=== PATIENT | male | born 1995 | race Caucasian/White ===

== ENCOUNTER 2022-04-07 06:15 | Emergency (ER) | payer SELFPAY ==
--- NOTE | 2022-04-07 06:20 | XRR_ITS ---
PROCEDURE INFORMATION: Exam: XR Right Ankle Exam date and time: 04/07/2022 6:36 AM Age: 27 years old Clinical indication: Injury or trauma; Fall; Blunt trauma; Right; Injury details: Fell today pain to entire ankle TECHNIQUE: Imaging protocol: Radiologic exam of the Right ankle. Views: Frontal, lateral, and oblique, 3 views. COMPARISON: No relevant prior studies available. FINDINGS: Bones/joints: Comminuted nondisplaced fractures involving the medial distal tibial metaphysis (hairline, oblique) and medial malleolus (comminuted, transverse) extending into the medial tibiotalar articulation. No joint incongruity. Small tibiotalar joint effusion. An os trigonum is present, a sometimes symptomatic normal variant. Soft tissues: Medial anterior predominant mild soft tissue swelling. XR/XR ankle RT min 3V* [id number] IMPRESSION: Acute distal tibial fractures.
--- NOTE | 2022-04-07 06:20 | XRR_ITS ---
PROCEDURE INFORMATION: Exam: XR Right Foot Exam date and time: 04/07/2022 6:36 AM Age: 27 years old Clinical indication: Injury or trauma; Fall; Blunt trauma; Right; Injury details: Fell today pain to entire ankle TECHNIQUE: Imaging protocol: Radiologic exam of the Right foot. Views: Frontal, lateral, and oblique, 3 views. COMPARISON: No relevant prior studies available. FINDINGS: Bones/joints: No acute bony abnormality identified. Possible small tibiotalar joint effusion. Fifth DIP joint fusion, normal variant. An os trigonum is present, a sometimes symptomatic normal variant. Soft tissues: Normal. XR/XR foot RT min 3V* [id number] IMPRESSION: 1. No acute bony injury identified. 2. Possible small tibiotalar joint effusion.
[2022-04-07 06:22] VITALS: BP 163/105; PULSE 100; RESP 18; TEMP 36.7; O2SAT 95; BMI 35.9
[2022-04-07 06:25] VITALS: PULSE 100
--- NOTE | 2022-04-07 06:26 | ED_ITS ---
HPI - Extremity Problem General: Chief complaint: Extremity Injury, Lower Stated complaint: Fell, Right foot injury Time Seen by Provider: 04/07/22 06:20 Source: patient Mode of arrival: ambulatory Limitations: no limitations History of Present Illness: 27-year-old male who presents to the emergency room with complaint of right foot injury. He evidently had been drinking and fell off a porch and injured his right foot is complaining of pain in the forefoot behind the second and first toes. Also complaining of pain in the ankle mild swelling he has been able to partially bear weight. He denies any other ingestion strike his head did not lose consciousness. MD Complaint: extremity pain and joint pain Onset (ago): hour(s) Pain Consistency: intermittent Location: left and lower extremity (Ankle foot) Relieving factors: nothing Exacerbating factors: nothing Associated symptoms: Deny chest pain, fever(s) or rash Review of Systems Const: Denies: fever(s), chills, body aches, change in appetite, fatigue or malaise ENMT: Denies: throat pain, ear or mastoid pain, nasal discharge or nasal lily estion Card: Denies: chest pain, edema, dyspnea on exertion or orthopnea Resp: Denies: dyspnea, productive cough or non-productive cough GI: Denies: abdominal pain, nausea or vomiting : Denies: difficulty urinating, dysuria, urinary frequency or urinary urgency Skin/Breast: Denies: rash or pruritus [facility] ED PFSH: Medical History No significant past medical history Surgical History No significant past surgical history Social History Smoking and tobacco status: current every day smoker Alcohol intake: current Physical Exam Const: COMMON NORMALS: no acute distress GENERAL APPEARANCE: cooperative and comfortable ORIENTATION/CONSCIOUSNESS: Yes awake, Yes oriented to person, Yes oriented to place and Yes oriented to time HENMT: COMMON NORMALS: normocephalic and atraumatic HEAD & SCALP: normocephalic and atraumatic Resp: COMMON NORMALS: normal respiratory effort, No retractions, No use of accessory muscles and clear to auscultation bilaterally AUSCULTATION: clear to auscultation bilaterally Cardio: COMMON NORMALS: regular rate, regular rhythm and No murmurs present (Cardio) RATE: regular rate RHYTHM: regular rhythm Extremity: OTHER: Moderate swelling of the right ankle no deformity no abrasions or lacerations. Patient able to dorsi and plantarflex sensation intact neurovascularly intact. Neuro: SENSORIUM/ORIENTATION: Yes oriented to person, Yes oriented to place and Yes oriented to time Skin: COMMON NORMALS: no rashes or lesions noted GENERAL SKIN EXAM: no rashes or lesions noted Course Vital Signs: Vital signs: Vital Signs Temperature 98.1 F 04/07/22 06:22 Pulse Rate 100 04/07/22 06:25 Respiratory Rate 18 04/07/22 06:22 Blood Pressure 163/105 04/07/22 06:22 Pulse Oximetry 95 04/07/22 06:22 Oxygen Delivery Me thod 04/07/22 06:22 MDM - Extremity (Nontraumatic) Medical Decision Making Fractured medial malleolus. Placed in a posterior splint nonweightbearing pain medications given refer to Ortho. Medical Records I reviewed the patient's medical records. Lab Data I reviewed the patient's lab results. Radiology Impressions Ankle X-Ray 04/07/22 06:20 IMPRESSION: Acute distal tibial fractures. Foot X-Ray 04/07/22 06:20 IMPRESSION: 1. No acute bony injury identified. 2. Possible small tibiotalar joint effusion. Discharge Plan Discharge Patient Disposition: Home Clinical Impression: Fracture of medial malleolus Prescriptions: New hydrocodone-acetaminophen 5-325 mg tablet 1 tab PO Q6H PRN (Reason: pain) Qty: 10 0RF Discharge Orders: Discharge ED (Routine); Ordered 04/07/22 Ordered By: Constantino Rueda Discharge Diet: Usual diet Discharge Activity: Limit activity as instructed Patient Instructions: Opioid Safety Activity Restrictions/Additional Instructions: manager test will make arrangements for follow-up with orthopedics Stand Alone Forms: Work/School Release Coding Level of Care Code ED Folding Machine Operator for Gwendolyn Fwd Exam Detailed
== END 2022-04-07 07:00 | disposition home or self-care (01) ==
PROVIDERS: Emergency Provider Family Medicine
DX: S82.51XA Displaced fracture of medial malleolus of right tibia, initial encounter for closed fracture (principal); F17.210 Nicotine dependence, cigarettes, uncomplicated; W17.89XA Other fall from one level to another, initial encounter
CPT/HCPCS: 29515; 73610; 73630; 99283; E0114

== ENCOUNTER → 2022-04-23 13:23 | Outpatient (BNVA) | payer SELFPAY | PROVIDERS: Visit Provider Podiatrist Foot & Ankle Surgery | DX: M25.571 Pain in right ankle and joints of right foot (principal) | CPT/HCPCS: 73610 ==

== ENCOUNTER 2022-07-13 11:30 | Emergency (ER) | payer SELFPAY ==
[2022-07-13 11:32] VITALS: BP 139/95; PULSE 92; RESP 21; TEMP 36.3; O2SAT 99; BMI 34.7
--- NOTE | 2022-07-13 12:01 | CT_ITS ---
WS: [id number] CT ABDOMEN PELVIS TECHNIQUE: Noncontrast CT of the abdomen and pelvis with coronal and sagittal reformatted images. CLINICAL INFORMATION: left flank pain COMPARISON: None. DLP: 1204.[address] scans at [facility] use at least one of these dose optimization techniques: automated e xposure control; mA and/or kV adjustment per patient size (includes targeted exams where dose is matc hed to clinical indication); or iterative reconstruction. FINDINGS: Obstructing distal LEFT ureteral calculus measuring 10 x 16 mm. This is just proximal to the UVJ. Mar ked LEFT hydronephrosis with ureterectasis. Inflammatory stranding and edema about the LEFT kidney an d ureter. No obstructing RIGHT renal or ureteral calculi. Lung bases are well aerated. Noncontrast liver and spleen are normal. Fatty atrophy of the pancreas. Normal GE junction. Gallbladder is contracted. Normal caliber abdominal aorta. Small bladder cystocele. Normal sigmoid colon. No evidence of high-grade small or large bowel obstruc tion. Tiny fat-containing umbilical hernia. CT/CT abdomen pelvis wo con [id number] IMPRESSION: 1. Obstructing distal LEFT ureteral calculus measuring 10 x 16 mm AP by cranio caudal. Slight fragmentation along the superior aspect of the calculus. 2. Advanced LEFT hydronephrosis with LEFT ureterectasis. 3. Inflammatory stranding and edema about the LEFT kidney and ureter. 4. Normal RIGHT kidney and ureter. 5. No other acute findings. Attempted notification Chaparro Hyde DO at 07/13/2022 1:08 PM.
--- NOTE | 2022-07-13 12:02 | W.ED.ABDPA2 ---
HPI - Abdominal Pain General: Chief Complaint: Abdominal Pain Stated Complaint: abdominal pain Time Seen by Provider: 07/13/22 11:34 Source: patient Mode of arrival: EMS Limitations: no limitations History of Present Illness: This patient transported by EMS to the emergency department because of left abdominal and flank pain. He states he awoke this morning from sleep and noted that he had pretty significant left flank and left abdominal pain. He states it seemed to radiate into his left testicle as well. He states that he felt fine when he went to bed last night. 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 He denies any falls. Denies any numbness or weakness or loss of bowel or bladder control. He states the pain is unlike pain he is experienced before. No history of kidney stones, frequent urinary tract infections, STD exposure. He denies vomiting or diarrhea. No abdominal surgeries. MD elicited complaint: abdominal pain and flank pain Pertinent past history: none Location: L flank Quality: aching and dull Associated Symptoms: Reports no associated symptoms; Denies chills, diarrhea, dysuria, fever(s), hematuria, hematemesis and vomiting Review of Systems Const: Denies: fever(s) or chills Eyes: Denies: change in vision ENMT: Denies: throat pain, odynophagia, nasal discharge, nasal congestion or nasal obstruction Card: Denies: chest pain or palpitations Resp: Denies: dyspnea, productive cough or non-productive cough GI: Denies: vomiting, hematemesis or diarrhea : Reports: flank pain; Denies: difficulty urinating, dysuria, urinary frequency, hematuria, genital pain, genital lesions or penile discharge Musc: Denies: neck pain, extremity pain or extremity swelling Skin/Breast: Denies: rash or pruritus Neuro: Denies: headache(s), numbness in extremities or weakness in extremities Abiodun/Lymph: Denies: easy bruising or easy bleeding PFSH ED PFSH: Medical History No significant past medical history Surgical History No significant past surgical history Social History Smoking and tobacco status: current every day smoker Alcohol intake: current Physical Exam Narrative: EXAM NARRATIVE: Patient appears comfortable. He is cooperative. He appears to be in no acute distress. Const: COMMON NORMALS: no acute distress and patient oriented x3 GENERAL APPEARANCE: cooperative and comfortable NUTRITIONAL APPEARANCE: overweight ORIENTATION/CONSCIOUSNESS: Yes awake HENMT: COMMON NORMALS: normocephalic, Normal nasal mucous membranes and turbinates present, moist oral mucous membranes and oropharynx normal HEAD & SCALP: normocephalic NOSE: Normal nasal mucous membranes and turbinates present Eye: COMMON NORMALS: Equal, round and reactive pupils present, EOMs intact bilaterally and conjunctivae normal CONJUNCTIVA: Yes conjunctivae normal PUPIL: Yes Equal, round and reactive pupils present Neck/C-Spine: COMMON NORMALS: full ROM Chest: COMMONS NORMALS: normal inspection of the chest and normal palpation of entire chest wall Resp: COMMON NORMALS: normal respiratory effort, No retractions, No use of accessory muscles and clear to auscultation bilaterally AUSCULTATION: clear to auscultation bilaterally Cardio: COMMON NORMALS: regular rate, regular rhythm, No murmurs present (Cardio) and Peripheral pulses 2+ throughout RATE: regular rate RHYTHM: regular rhythm PERIPHERAL PULSES: Peripheral pulses 2+ throughout GI: COMMON NORMALS: Normal to inspection, nondistended, normoactive bowel sounds present OTHER: Abdomen is generally soft to palpation. He does have some subjective tenderness in the left lateral and lower abdomen. No skin rashes, ecchymosis noted. Subjective discomfort to palpation extends around to the left flank. No exacerbation of symptoms with twisting and turning. No rebound, no guarding. : COMMON NORMALS: Yes no CVA tenderness, Yes normal external exam, Yes Testes normal, Yes scrotum normal, Yes no scrotal swelling and Yes No hernias present BLADDER/KIDNEY EXAM: Yes no CVA tenderness PENIS: normal penis TESTES: Yes testicular lie normal and Yes epididymides normal Back/Pelvis: COMMON NORMALS: no CVA tenderness, thoracic and lumbar spine normal to inspection, no thoracic nor lumbar tenderness, thoraco-lumbar ROM normal and straight leg raise negative bilaterally Extremity: COMMON NORMALS: normal to inspection, full ROM and no pedal edema Neuro: COMMON NORMALS: patient oriented x3, moves all extremities, no focal motor deficits and no sensory deficits noted Psych: COMMON NORMALS: mental status grossly normal Skin: COMMON NORMALS: no rashes or lesions noted, turgor normal, no jaundice and no petechiae GENERAL SKIN EXAM: no rashes or lesions noted and turgor normal Course Reevaluation(s): Reevaluation #1: Patient is comfortable at this time. I discussed current findings and plan of care. He voiced understanding. Stable at this time. Time: 14:29 Consultations: Consultation #1: Discussed current findings with Dr. Haji consulting urologist who will see him next day or so to evaluate and and treat as indicated. Time: 14:29 Vital Signs: Vital signs: Vital Signs Temperature 97.3 F L 07/13/22 11:32 Pulse Rate 81 07/13/22 14:01 Respiratory Rate 16 07/13/22 14:01 Blood Pressure 162/100 07/13/22 14:01 Pulse Oximetry 100 07/13/22 14:01 Oxygen Delivery Me thod 07/13/22 14:01 MDM - Abdominal Pain Medical Decision Making Patient who presented to our emergency department with left flank pain and subsequent work-up revealed left distal UVJ stone with associated hydronephrosis but no evidence of infection, diminished renal function or other concerning findings. I discussed with the consulting urologist who will manage the case as an outpatient. Reviewed the findings with the patient and in detail included return precautions such as fever etc. No evidence of associated infection or abnormal renal function and therefore stable at this time for outpatient management. Pain is well controlled. Medical Records I reviewed the patient's medical records. Lab Data I reviewed the patient's lab results. : 07/13/22 13:50 07/13/22 13:50 Labs/Radiology: Radiology Impressions Abdomen/Pelvis CT 07/13/22 12:01 IMPRESSION: 1. Obstructing distal LEFT ureteral calculus measuring 10 x 16 mm AP by craniocaudal. Slight fragmentation along the superior aspect of the calculus. 2. Advanced LEFT hydronephrosis with LEFT ureterectasis. 3. Inflammatory stranding and edema about the LEFT kidney and ureter. 4. Normal RIGHT kidney and ureter. 5. No other acute findings. Attempted notification Chaparro Hyde DO at 07/13/2022 1:08 PM. Laboratory Results WBC 10.5 10^3/uL (4.0-10.0) H 07/13/22 13:50 RBC 4.65 10^6/uL (4.1-5.3) 07/13/22 13:50 Hgb 14.2 g/dL (11.7-16.6) 07/13/22 13:50 Hct 42.6 % (42.0-52.0) 07/13/22 13:50 MCV 91.6 fl (80-94) 07/13/22 13:50 MCH 30.5 pg (28.0-34.0) 07/13/22 13:50 MCHC 33.3 g/dL (30.0-36.0) 07/13/22 13:50 RDW 12.5 % (12.1-15.1) 07/13/22 13:50 Plt Count 190 10^3/cmm (130-400) 07/13/22 13:50 MPV 10.3 fL (7.4-10.4) 07/13/22 13:50 Neut % (Auto) 81.5 % 07/13/22 13:50 Lymph % (Auto) 12.8 % 07/13/22 13:50 [place] % (Auto) 4.4 % 07/13/22 13:50 Eos % (Auto) 0.1 % 07/13/22 13:50 Baso % (Auto) 0.7 % 07/13/22 13:50 Neut # (Auto) 8.60 10^3/uL (1.8-7.7) H 07/13/22 13:50 Lymph # (Auto) 1.4 10^3/uL (0.8-4.8) 07/13/22 13:50 [place] # (Auto) 0.5 10^3/uL (0.2-0.9) 07/13/22 13:50 Eos # (Auto) 0.0 10^3/uL (0.0-0.8) 07/13/22 13:50 Baso # (Auto) 0.1 10^3/uL (0.0-0.1) 07/13/22 13:50 Nucleated RBC % (auto) 0 % 07/13/22 13:50 Nucleated RBCs # 0.0 /100WBC 07/13/22 13:50 Sodium 140 mmol/L (136-145) 07/13/22 13:50 Potassium 4.1 mmol/L (3.5-5.1) 07/13/22 13:50 Chloride 107 mmol/L (98-107) 07/13/22 13:50 Carbon Dioxide 24 mmol/L (22-29) 07/13/22 13:50 Anion Gap 13.1 (5-19) 07/13/22 13:50 BUN 7 mg/dL (6-20) 07/13/22 13:50 Creatinine 0.6 mg/dL (0.7-1.2) L 07/13/22 13:50 GFR Calculation 164.2 mL/min (90-130) H 07/13/22 13:50 Glucose 100 mg/dL (65-115) 07/13/22 13:50 Calculated Osmolality 288 mOsm/kg (285-295) 07/13/22 13:50 Calcium 8.9 mg/dL (8.5-10.5) 07/13/22 13:50 Total Bilirubin 0.2 mg/dL (0.15-1.2) 07/13/22 13:50 AST 10 U/L (0-40) 07/13/22 13:50 ALT 13 U/L (0-41) 07/13/22 13:50 Alkaline Phosphatase 93 U/L (40-130) 07/13/22 13:50 Total Protein 6.6 g/dL (6.6-8.7) 07/13/22 13:50 Albumin 4.0 g/dL (3.5-5.2) 07/13/22 13:50 Globulin 2.6 g/dL (1.3-4.6) 07/13/22 13:50 Urine Color Yellow (Yellow) 07/13/22 Unknown Urine Appearance Clear (CLEAR) 07/13/22 Unknown Urine pH 6 (5-7) 07/13/22 Unknown Ur Specific [place] 1.015 (1.005-1.030) 07/13/22 Unknown Urine Protein Trace (Negative) 07/13/22 Unknown Urine Glucose (UA) Norm (Normal) 07/13/22 Unknown Urine Ketones Negative (Negative) 07/13/22 Unknown Urine Blood 3+ (Negative) H 07/13/22 Unknown Urine Nitrate Negative (Negative) 07/13/22 Unknown Urine Bilirubin Neg (Negative) 07/13/22 Unknown Urine Urobilinogen Norm mg/dL (Negative) 07/13/22 Unknown Ur Leukocyte Esterase Negative (Negative) 07/13/22 Unknown Urine RBC 0-4 /hpf (0-2) H 07/13/22 Unknown Urine WBC None /hpf (0-5) 07/13/22 Unknown Ur Squamous Epith Cells None /hpf (0-5) 07/13/22 Unknown Amorphous Sediment Not Reportable 07/13/22 Unknown Urine Bacteria Trace /hpf (NONE) 07/13/22 Unknown Discharge Plan Discharge Patient Disposition: Home Clinical Impression: Calculus of distal left ureter Condition: Stable Prescriptions: New ketorolac 10 mg tablet 10 mg PO TID 4 Days Qty: 12 0RF No Action citalopram [Celexa] 10 mg tablet 10 mg PO DAILY Qty: 30 2RF Discharge Orders: Discharge ED (Routine); Ordered 07/13/22 Ordered By: Chaparro Hyde Referrals: Catrachito Haji MD [Physician] - 1-3 days (as discussed from ED) Discharge Diet: Usual diet Discharge Activity: Increase activity as tolerated Patient Instructions: Opioid Safety, Pain Management Activity Restrictions/Additional Instructions: Dr. Haji is office staff will be contacting you regarding follow-up. In the meantime if you develop fever, increasing pain, inability to tolerate your medicine or other concerns at any time return to this emergency department immediately. Make sure you drink at least 2 quarts of water a day. We have provided a prescription for pain medication you should take as needed and as prescribed. Coding Level of Care Code ED Extract Operator for Chg Fwd Exam Comprehensive
[2022-07-13 13:59] LABS: Basophils # 0.1 10^3/uL (0.0-0.1); Basophils % 0.7 %; Eosinophils % 0.1 %; Hematocrit 42.6 % (42.0-52.0); Hemoglobin 14.2 g/dL (11.7-16.6); Lymphocytes # 1.4 10^3/uL (0.8-4.8); Lymphocytes % 12.8 %; Mean Corpuscular HGB Conc 33.3 g/dL (30.0-36.0); Mean Corpuscular Hemoglobin 30.5 pg (28.0-34.0); Mean Corpuscular Volume 91.6 fl (80-94); Mean Platelet Volume 10.3 fL (7.4-10.4); Monocytes # 0.5 10^3/uL (0.2-0.9); Monocytes % 4.4 %; Neutrophils % 81.5 %; Nucleated Red Blood Cells % 0 %; Platelet Count 190 10^3/cmm (130-400); Red Blood Count 4.65 10^6/uL (4.1-5.3); Red Cell Distribution Width 12.5 % (12.1-15.1); White Blood Count 10.5 10^3/uL (4.0-10.0)
[2022-07-13 14:01] VITALS: BP 162/100; PULSE 81; RESP 16; O2SAT 100
[2022-07-13 14:09] LABS: Add Urine Culture? No; Add Urine Microscopic? YES; Bacteria Urine TRACE /hpf; Bilirubin Urine Neg (Negative); Blood Urine 3+ (Negative); Glucose Urine UA Norm (Normal); Ketones Urine Negative (Negative); Leukocyte Esterase Urine Negative (Negative); Nitrate Urine Negative (Negative); Protein Urine Trace (Negative); RBC Urine 0-4 /hpf (0-2); Specific Gravity, Urine 1.015 (1.005-1.030); Urine Appearance Clear (CLEAR); Urine Color Yellow (Yellow); Urobilinogen Urine Norm (Negative); pH Urine 6 (5-7)
[2022-07-13 14:18] LABS: Alanine Aminotransferase 13 U/L (0-41); Alkaline Phosphatase 93 U/L (40-130); Anion Gap 13.1 (5-19); Aspartate Amino Transferase 10 U/L (0-40); Blood Urea Nitrogen 7 mg/dL (6-20); Calcium 8.9 mg/dL (8.5-10.5); Carbon Dioxide 24 mmol/L (22-29); Chloride 107 mmol/L (98-107); Globulin 2.6 g/dL (1.3-4.6); Glomerular Filtration Rate 164.2 mL/min (90-130); Glucose 100 mg/dL (65-115); Osmolality Calculated 288 mOsm/kg (285-295); Potassium 4.1 mmol/L (3.5-5.1); Sodium 140 mmol/L (136-145); Total Bilirubin 0.2 mg/dL (0.15-1.2); Total Protein 6.6 g/dL (6.6-8.7)
[2022-07-13 14:36] VITALS: BP 144/84; PULSE 56; RESP 18; O2SAT 97
[2022-07-13 14:37] VITALS: BP 144/84; PULSE 56; RESP 18; O2SAT 97
== END 2022-07-13 14:41 | disposition home or self-care (01) ==
PROVIDERS: Emergency Provider Emergency Medicine
DX: N20.1 Calculus of ureter (principal); F17.210 Nicotine dependence, cigarettes, uncomplicated
CPT/HCPCS: 74176; 80053; 81001; 85025; 99284

== ENCOUNTER 2022-07-24 07:19 | Outpatient (CLI) | payer SELFPAY ==
--- NOTE | 2022-07-24 07:00 | XRR_ITS ---
PROCEDURE INFORMATION: Exam: XR Abdomen Exam date and time: 07/24/2022 7:37 AM Age: 27 years old Clinical indication: Condition or disease; Kidney or ureter condition; Calculus (stone) in kidney; Additional info: Stones, kub 07/24/22 @ 7:00 am appt to follow TECHNIQUE: Imaging protocol: Radiologic exam of the abdomen. Views: Frontal supine view of the abdomen. 1 View. COMPARISON: CT abdomen pelvis wo con [id number] 07/13/2022 12:27 PM FINDINGS: Gastrointestinal tract: Normal. No bowel dilation. Organs: Persistent adjacent obstructing stones in the left distal ureter, the largest measuring 1.6 cm. Bones/joints: Unremarkable. XR/XR KUB [id number] IMPRESSION: Persistent obstructing stones in the left distal ureter.
== END 2022-07-24 07:20 | disposition home or self-care (01) ==
PROVIDERS: Visit Provider Urology
DX: N20.0 Calculus of kidney (principal); N20.1 Calculus of ureter
CPT/HCPCS: 74018; 81003

== ENCOUNTER → 2022-07-29 14:43 | Outpatient (BNVA) | payer SELFPAY | PROVIDERS: PCP Nurse Practitioner Family; Visit Provider Urology | DX: N20.0 Calculus of kidney (principal); N20.1 Calculus of ureter | CPT/HCPCS: 81003 ==

== ENCOUNTER 2022-08-03 07:58 | Day surgery (SDC) | payer SELFPAY ==
[2022-08-03] VITALS (9 sets, daily range): BP systolic 121–167; BP diastolic 77–105; PULSE 58–85; RESP 16–20; TEMP 36.1–36.3; O2SAT 92–99
--- NOTE | 2022-08-03 | SCC_ITS ---
Procedure done: 1. Cystoscopy, LEFT retrograde ureteropyelogram 2. Left ureteroscopy, laser lithotripsy, stent 51 seconds of fluoroscopic guidance, for a cumulative dose of 21.8 mGy, was provided to Dr. Haji by the radiology department. C-arm images of the abdomen were saved for the patient's permanent record. [facility]
--- NOTE | 2022-08-03 08:00 | SC_ITS ---
WS: [id number] INTRAOPERATIVE TECHNIQUE: 3 Spot fluoroscopic images for intraoperative purposes. FLUOROSCOPY TIME: 43.1 seconds CLINICAL INFORMATION: 2 large left distal ureteral stones, preop ureteroscopy FINDINGS: Contrast injection LEFT ureter with multiple filling defects consistent with calculi. Deployment doub le-J ureteral stent. SC/C-arm FL for Urology IMPRESSION: Images obtained for intraoperative purposes.
--- NOTE | 2022-08-03 08:28 | P.ANESASSM_ITS ---
Pre-Anesthetic Assessment Height/Weight: Height 1.88 m Weight 122.47 kg Temp Pulse Resp BP Pulse Ox O2 Del Method 97.3 F L 83 16 167/105 97 08/03/22 08:00 08/03/22 08:00 08/03/22 08:00 08/03/22 08:00 08/03/22 08:00 08/03/22 08:12 Preop Diagnosis: 2 large left distal ureteral stones with chronic obstruction Operation Date: 08/03/22 09:35 Proposed Procedures p CYSTOSCOPY LEFT RETROGRADE URETEROSCOPY LASER STENT 94238 [id number] N20.1(Not Applicable) - Catrachito Haji MD s Retrograde Pyelogram(Left) - Catrachito Haji MD s Ureteroscopy(Left) - Catrachito Haji MD s Laser Lithotripsy(Left) - Catrachito Haji MD s Ureteral Stent Placement(Left) - Catrachito Haji MD Familial anesthetic complications: none Was Beta Jakob taken within 24 hours: N/A Was Clonidine taken within 24 hours: N/A Last intake: Intake Last Liquid Date 08/02/22 Last Liquid Time 20:00 Last Solid Date 08/02/22 Last Solid Time 20:00 Social Tobacco and No alcohol Exam alert, oriented x 3 and regular rate & rhythm Airway Submandibular: within normal limits Cervical ROM: within normal limits Dentition: full Pulmonary Chronic Obstructive Pulmonary Disease Metabolic Morbid Obesity Anesthetic Plan ASA status: 2 Anesthesia: General Medications/Allergies Home Medications Medication Instructions Recorded Confirmed Last Taken Type citalopram 10 mg tablet (Celexa) 10 mg PO DAILY #30 tabs 04/17/22 07/31/22 07/28/22 Rx Allergies Allergy/AdvReac Type Severity Reaction Status Date / Time No Known Allergies Allergy Verified 08/03/22 08:08 [facility] Anesthesia Medical History (Updated 07/29/22 @ 15:43 by Catrachito Haji MD) Left ureteral calculus No significant past medical history Surgical History No significant past surgical history Family History Mother Diabetes Thyroid disease Father Diabetes Social History Smoking and tobacco status: current every day smoker e-cigarettes Alcohol intake: current Alcohol intake frequency: few times a month Marital status: Single Current occupational status: employed History of recent travel: No Data Anesthesia Cardiac Studies: No Data to Display
[2022-08-03] MEDS: sodium chloride 0.9% 1,000 ML 30 ML IV (08:31)
--- NOTE | 2022-08-03 08:31 | W.PM.OPSUD ---
Surgery/Procedure H&P Update DATE OF PROCEDURE: August 03, 2022 DATE H&P PERFORMED: 07/29/22 H&P UPDATE INFORMATION: I have reviewed H&P completed within last 30 days, I have examined patient prior to procedure, No changes to prior documentation and H&P is in [facility] EMR on date indicated CHANGES TO PREVIOUS DOCUMENTATION: I reviewed again with him that there is a chance that we have to simply place a stent for passive dilation and drainage if there is a severe amount of inflammatory change that prevented the scope from safely being advanced to the stone. I also reviewed with him again that there is a possibility based on that same inflammatory potential that no access proximal to the stone could be gained in a retrograde fashion which would necessitate consideration of antegrade access/stenting via interventional radiology which would require consultation to interventional radiology department at another institution He expressed good understanding. I do not think those are likely but they are certainly a possibility given the size and persistence of the stones in this position PLANNED PROCEDURE: Operation Date: 08/03/22 09:35 Proposed Procedures p CYSTOSCOPY LEFT RETROGRADE URETEROSCOPY LASER STENT [id number] N20.1(Not Applicable) - Catrachito Haji MD s Retrograde Pyelogram(Left) - Catrachito Haji MD s Ureteroscopy(Left) - Catrachito Haji MD s Laser Lithotripsy(Left) - Catrachito Haji MD s Ureteral Stent Placement(Left) - Catrachito Haji MD
[2022-08-03] MEDS: levofloxacin-dextrose 5 % 500 MG/100 ML PREMIX 100 MG IV (08:40)
--- NOTE | 2022-08-03 10:06 | P.OP_ITS ---
Operative Report Date of procedure: August 03, 2022 Pre-op diagnosis: 2 large left distal ureteral stones with chronic obstruction Post-op diagnosis: Several large left distal ureteral stones with chronic obstruction Procedure done: 1. Cystoscopy, LEFT retrograde ureteropyelogram 2. Left ureteroscopy, laser lithotripsy, stent Implants: Left ureteral stent Specimens removed/disposition: Stone fragments Pathology: Stone fragments Surgeon: Raissa Estimated blood loss: Minimal Urine output: Not measured Complications: None Findings: Anesthesia: General Condition: Stable Disposition: PACU Intraoperative findings: * Stones in the expected position. * Completely fragmented with 365 ?m thulium superpulse laser fiber * 6 [place]an by 30 stent left indwelling no string Brief History: Ferny is a 27-year-old white male recently evaluated for 2 large stones in the left distal ureter with chronic obstructive changes and inflammatory changes around the stone. He had neglected to follow-up as he had been previously recommended the stones were originally diagnosed. Ultimately though due to intermittent symptoms he elected to proceed with intervention and endoscopy was selected initially. We discussed the potential because of chronic inflammatory changes that retrograde access may be quite difficult and necessitated a staged procedure either with indwelling stent initially as the only option of bypassing the stone or even potentially antegrade stent placement if severely inflamed and not accessible. He expressed understanding based on the rationale of his circumstances as to why those things might occur and was willing to proceed as recommended Procedure: After routine preoperative evaluation examination and obtaining of informed consent he was taken to the operating suite on 08/03/2022 where general anesthesia was administered without difficulty after appropriate timeout was performed, SCDs confirmed to be functioning, preoperative antibiotics administered, beta-artur protocol confirmed. Prepped and draped in usual sterile fashion in dorsolithotomy position and careful attention to pressure points. 21 [place]an cystoscope with 30 degree lens was introduced into the urethra meatus and advanced into the bladder difficulty. An 8 [place]an cone-tip catheter was intubated into the left ureteral orifice for left retrograde ureteropyelogram which demonstrated: Thankfully there was good flow of contrast proximal to the stones and the stones were free within the ureter. The ureter proximal to the stones was markedly dilated. There were actually probably 3 or 4 stones if not more in the distal ureter with the largest being the more distal. A flexible tip guidewire was then advanced up the left ureter bypassing the stones. The ureter distal to the most distal stone was then dilated with a 15 [place]an 4 cm balloon A second guidewire was passed. The first was secured to the drapes as a safety wire. A 7 [place]an offset semirigid ureteroscope was advanced over the working wire up to the stones which were encountered in the expected position. A 365 ?m thulium superpulse laser fiber was utilized to fragment the stones completely. Fragments were removed with basket or flushed out of the ureter. Final inspection showed that the ureter had no more fragments of consequence in it but it was quite inflamed at the site of stones location. For that reason a stent was left indwelling at the completion of the procedure. Cystoscope backloaded over the safety wire and a 6 [place]an by 30 cm double- pigtail stent without string was passed over the guidewire through the cystoscope into appropriate position as confirmed via fluoroscopy and cystoscopy. Bladder was cleared of fragments that had been migrated or dropped into the bladder with an Ellik evacuator. It was a very large burden of stone for ureteral location Stent was confirmed to be functioning and the procedure was completed. He tolerated procedure well without complications and was awakened in the operating room and returned to the recovery room in stable condition. PLANS: 1. Anticipate discharge from outpatient surgery 2. Follow-up in 2 weeks with KUB and likely cystoscopy stent removal
[2022-08-03] MEDS: HYDROcodone-acetaminophen 5-325 mg Tablet 1 TAB PO (10:50)
--- NOTE | 2022-08-03 15:18 | ANE.PACU2 ---
Inpatient post-anesthesia follow up: Airway intact: Yes Vital signs: Temperature 97.1 F Pulse Rate 58 Respiratory Rate 16 Blood Pressure 145/85 Pulse Oximetry 99 Oxygen Delivery Me thod Room Air Oxygen Flow Rate Fraction of Inspir ed Oxygen Hydration adequate: Yes Nausea and vomiting: No Pain level: 2 Mental status: Baseline
[2022-08-08 11:26] LABS: Stone Source LEFT URETER
== END 2022-08-03 11:10 | disposition home or self-care (01) ==
PROVIDERS: PCP Nurse Practitioner Family; Visit Provider Urology
PROC: 0TJB8ZZ Inspection of Bladder, Via Natural or Artificial Opening Endoscopic (ICD-10-PCS; CPT 52000; principal; 2022-08-03 09:15)
PROC: (CPT 74420; 2022-08-03 09:15)
PROC: 0TJ98ZZ Inspection of Ureter, Via Natural or Artificial Opening Endoscopic (ICD-10-PCS; CPT 52351; 2022-08-03 09:15)
PROC: (CPT 52356; 2022-08-03 09:15)
PROC: (CPT 50605; 2022-08-03 09:15)
DX: N20.1 Calculus of ureter (principal); J44.9 Chronic obstructive pulmonary disease, unspecified; E66.01 Morbid (severe) obesity due to excess calories; Z68.34 Body mass index [BMI] 34.0-34.9, adult; F17.290 Nicotine dependence, other tobacco product, uncomplicated
CPT/HCPCS: 52356; 76000; 82365; 88300; C2625; J1100; J1956; J2405; J2704; J2710; J3010; J3490; J7030

== ENCOUNTER 2022-08-19 12:09 | Outpatient (CLI) | payer SELFPAY ==
--- NOTE | 2022-08-19 12:15 | XR_ITS ---
WS: [id number] EXAMINATION: XR KUB [id number] REASON FOR EXAM: stone COMPARISON: 07/24/2022 ORDER DATE: 08/19/2022 12:21 PM FINDINGS: There is a nonspecific colonic gas pattern with scattered fecal content and gas. There is no sign of significant small bowel dilation. There is a double-J ureteral stent in satisfactory position on the left. Possible tiny calcification superimposes the lower pole left kidney. XR/XR KUB [id number] IMPRESSION: Ureteral stent on the left with possible tiny lower pole calcification Large distal left ureteral calculi no longer present.
== END 2022-08-19 12:10 | disposition home or self-care (01) ==
LOC: RAD 12:09
PROVIDERS: PCP Nurse Practitioner Family; Visit Provider Urology
DX: N20.1 Calculus of ureter (principal); Z96.0 Presence of urogenital implants
CPT/HCPCS: 74018

== ENCOUNTER 2024-03-29 14:24 | Emergency (ER) | payer SELFPAY ==
[2024-03-29 14:34] VITALS: BP 121/85; PULSE 139; RESP 18; TEMP 37.1; O2SAT 98; BMI 35.2
[2024-03-29 15:11] LABS: Basophils # 0.1 10^3/uL (0.0-0.1); Basophils % 0.8 %; Eosinophils # 0.1 10^3/uL (0.0-0.8); Eosinophils % 0.6 %; Hematocrit 45.9 % (37-53); Lymphocytes # 2.4 10^3/uL (0.8-4.8); Lymphocytes % 24.9 %; Mean Corpuscular HGB Conc 33.8 g/dL (30-55); Mean Corpuscular Hemoglobin 29.4 pg (27-33); Mean Corpuscular Volume 86.9 fl (82-101); Mean Platelet Volume 10.6 fL (7.4-10.4); Monocytes # 0.7 10^3/uL (0.2-0.9); Monocytes % 7.1 %; Neutrophils # 6.48 10^3/uL (1.8-7.7); Neutrophils % 66.2 %; Nucleated Red Blood Cells % 0 %; Platelet Count 224 10^3/cmm (157-399); Red Blood Count 5.28 10^6/uL (3.85-5.65); Red Cell Distribution Width 12.9 % (12.1-15.1)
[2024-03-29 15:28] LABS: Alanine Aminotransferase 41 U/L (0-41); Albumin Level 4.4 g/dL (3.5-5.2); Alkaline Phosphatase 151 U/L (40-130); Anion Gap 19.2 (5-19); Aspartate Amino Transferase 17 U/L (0-40); Blood Urea Nitrogen 8 mg/dL (6-20); Calcium 9.4 mg/dL (8.5-10.5); Carbon Dioxide 24 mmol/L (22-29); Chloride 101 mmol/L (98-107); Creatinine Clr Calc Pharmacy 194.2847; Globulin 3.9 g/dL (1.3-4.6); Glucose 98 mg/dL (65-115); Lipase 19 U/L (13-60); Osmolality Calculated 288 mOsm/kg (285-295); Potassium 4.2 mmol/L (3.5-5.1); Sodium 140 mmol/L (136-145); Total Bilirubin 0.9 mg/dL (0.15-1.2); Total Protein 8.3 g/dL (6.6-8.7)
--- NOTE | 2024-03-29 15:44 | ED_ITS ---
HPI - Abdominal Pain 2 General: Chief Complaint: Abdominal Pain Stated Complaint: n/v, abd pain Time Seen by Provider: 03/29/24 15:43 PFSH ED 2 PFSH: Medical History Left ureteral calculus Surgical History Status post laser lithotripsy of ureteral calculus July 2022: Multiple large obstructing stones left distal ureter that have been in place for at least 1 year. Temporary stent Family History Mother Diabetes Thyroid disease Father Diabetes Social History Smoking and tobacco/nicotine status: current every day tobacco/nicotine user e- cigarettes Alcohol intake: current Alcohol intake frequency: few times a month Marital status: Single Current occupational status: employed Course 2 Vital Signs: Vital signs: Vital Signs Temperature 98.8 F 03/29/24 14:34 Pulse Rate 139 H 03/29/24 14:34 Respiratory Rate 18 03/29/24 14:34 Blood Pressure 121/85 03/29/24 14:34 Pulse Oximetry 98 03/29/24 14:34 Oxygen Delivery Me thod Room Air 03/29/24 14:34 MDM - Abdominal Pain Lab Data 03/29/24 15:02 03/29/24 15:02 Labs/Radiology: Laboratory Results WBC 9.80 10^3/uL (3.29-11.43) 03/29/24 15:02 RBC 5.28 10^6/uL (3.85-5.65) 03/29/24 15:02 Hgb 15.50 g/dL (11.27-16.99) 03/29/24 15:02 Hct 45.9 % (37-53) 03/29/24 15:02 MCV 86.9 fl (82-101) 03/29/24 15:02 MCH 29.4 pg (27-33) 03/29/24 15:02 MCHC 33.8 g/dL (30-55) 03/29/24 15:02 RDW 12.9 % (12.1-15.1) 03/29/24 15:02 Plt Count 224 10^3/cmm (157-399) 03/29/24 15:02 MPV 10.6 fL (7.4-10.4) H 03/29/24 15:02 Neut % (Auto) 66.2 % 03/29/24 15:02 Lymph % (Auto) 24.9 % 03/29/24 15:02 [place] % (Auto) 7.1 % 03/29/24 15:02 Eos % (Auto) 0.6 % 03/29/24 15:02 Baso % (Auto) 0.8 % 03/29/24 15:02 Neut # (Auto) 6.48 10^3/uL (1.8-7.7) 03/29/24 15:02 Lymph # (Auto) 2.4 10^3/uL (0.8-4.8) 03/29/24 15:02 Ellis # (Auto) 0.7 10^3/uL (0.2-0.9) 03/29/24 15:02 Eos # (Auto) 0.1 10^3/uL (0.0-0.8) 03/29/24 15:02 Baso # (Auto) 0.1 10^3/uL (0.0-0.1) 03/29/24 15:02 Nucleated RBC % (auto) 0 % 03/29/24 15:02 Nucleated RBCs # 0.0 /100WBC 03/29/24 15:02 Sodium 140 mmol/L (136-145) 03/29/24 15:02 Potassium 4.2 mmol/L (3.5-5.1) 03/29/24 15:02 Chloride 101 mmol/L (98-107) 03/29/24 15:02 Carbon Dioxide 24 mmol/L (22-29) 03/29/24 15:02 Anion Gap 19.2 (5-19) H 03/29/24 15:02 BUN 8 mg/dL (6-20) 03/29/24 15:02 Creatinine 0.8 mg/dL (0.7-1.2) 03/29/24 15:02 GFR Calculation 116.0 mL/min (90-130) 03/29/24 15:02 Glucose 98 mg/dL (65-115) 03/29/24 15:02 Calculated Osmolality 288 mOsm/kg (285-295) 03/29/24 15:02 Calcium 9.4 mg/dL (8.5-10.5) 03/29/24 15:02 Total Bilirubin 0.9 mg/dL (0.15-1.2) 03/29/24 15:02 AST 17 U/L (0-40) 03/29/24 15:02 ALT 41 U/L (0-41) 03/29/24 15:02 Alkaline Phosphatase 151 U/L (40-130) H 03/29/24 15:02 Total Protein 8.3 g/dL (6.6-8.7) 03/29/24 15:02 Albumin 4.4 g/dL (3.5-5.2) 03/29/24 15:02 Globulin 3.9 g/dL (1.3-4.6) 03/29/24 15:02 Lipase 19 U/L (13-60) 03/29/24 15:02 Discharge Plan Discharge Condition: Stable Prescriptions: No Action citalopram [Celexa] 10 mg tablet 10 mg PO DAILY Qty: 30 2RF hydrocodone-acetaminophen 5-325 mg tablet 1 tab PO Q8H PRN (Reason: Renal colic) 2 Days Qty: 5 0RF Coding Level of Care Code ED [place] for Sadig Romi
--- NOTE | 2024-03-29 15:46 | USR_ITS ---
PROCEDURE INFORMATION: Exam: US Abdomen; Limited Exam date and time: 03/29/2024 4:01 PM Age: 29 years old Clinical indication: Abdominal pain; Localized; Right upper quadrant (ruq); Additional info: Ruq pain TECHNIQUE: Imaging protocol: Real time ultrasound of the abdomen with image documentation. Limited exam focused on the region of clinical interest. COMPARISON: CT abdomen pelvis wo con [id number] 07/13/2022 12:27 PM FINDINGS: Gallbladder: Multiple tiny stones and sludge are noted in the gallbladder. Gallbladder wall thickness is normal. Bile ducts are normal. Liver is unremarkable. Right kidney is normal. US/US gall bladder [id number] IMPRESSION: Cholelithiasis with no obvious evidence of acute cholecystitis
--- NOTE | 2024-03-29 16:00 | ED_ITS ---
HPI - Abdominal Pain 2 General: Chief Complaint: Abdominal Pain Stated Complaint: n/v, abd pain Time Seen by Provider: 03/29/24 15:43 Source: patient Mode of arrival: ambulatory Limitations: no limitations History of Present Illness: 29-year-old male states been right upper quadrant abdominal pain for the last 3 days. States been worse with eating it has been sharp in nature he is concerned it is his gallbladder. He had some nausea denies any vomiting denies any fevers. He denies any lower abdominal pain. Associated Symptoms: Reports nausea; Denies chills, diarrhea, fever(s) and vomiting Review of Systems 2 Const: Denies: fever(s), chills, body aches or change in appetite ENMT: Denies: throat pain or dental pain Card: Denies: chest pain Resp: Denies: dyspnea GI: Reports: abdominal pain and nausea; Denies: vomiting or diarrhea Musc: Denies: neck pain or back pain Skin/Breast: Denies: rash Neuro: Denies: headache(s) PFSH ED 2 PFSH: Medical History Left ureteral calculus Surgical History Status post laser lithotripsy of ureteral calculus July 2022: Multiple large obstructing stones left distal ureter that have been in place for at least 1 year. Temporary stent Family History Mother Diabetes Thyroid disease Father Diabetes Social History Smoking and tobacco/nicotine status: current every day tobacco/nicotine user e- cigarettes Alcohol intake: current Alcohol intake frequency: few times a month Marital status: Single Current occupational status: employed Physical Exam 2 Const: COMMON NORMALS: no acute distress, patient oriented x3 and healthy appearing HENMT: COMMON NORMALS: normocephalic and atraumatic HEAD & SCALP: n ormocephalic and atraumatic Neck/C-Spine: COMMON NORMALS: full ROM and supple Chest: COMMONS NORMALS: normal inspection of the chest and normal palpation of entire chest wall Resp: COMMON NORMALS: normal respiratory effort, No retractions, No use of accessory muscles and clear to auscultation bilaterally AUSCULTATION: clear to auscultation bilaterally Cardio: COMMON NORMALS: regular rate, regular rhythm and No murmurs present (Cardio) RATE: regular rate RHYTHM: regular rhythm GI: COMMON NORMALS: Normal to inspection, nondistended, normoactive bowel sounds present, Soft to palpation, non-tender and no masses PALPATION: Yes Soft to palpation Extremity: COMMON NORMALS: normal to inspection and full ROM Neuro: COMMON NORMALS: patient oriented x3, moves all extremities and no focal motor deficits Psych: COMMON NORMALS: mental status grossly normal, Normal thought process present and cooperative THOUGHT PROCESS: Normal thought process present Skin: COMMON NORMALS: no rashes or lesions noted and no wounds GENERAL SKIN EXAM: no rashes or lesions noted Course 2 Vital Signs: Vital signs: Vital Signs Temperature 98.8 F 03/29/24 14:34 Pulse Rate 139 H 03/29/24 14:34 Respiratory Rate 16 03/29/24 17:00 Blood Pressure 148/110 03/29/24 17:00 Pulse Oximetry 97 03/29/24 17:00 Oxygen Delivery Me thod Room Air 03/29/24 17:00 MDM - Abdominal Pain Medical Decision Making Patient presents with abdominal pain likely from gallstones biliary colic is no signs of acute cholecystitis is blood work here is normal his heart rate currently is in the 80s he feels improved we will prescribe him pain meds we will get him follow-up with surgery he is return if worsening. Medical Records I reviewed the patient's medical records. Lab Data I reviewed the patient's lab results. 03/29/24 15:02 03/29/24 15:02 Labs/Radiology: Radiology Impressions Gallbladder Ultrasound 03/29/24 15:46 IMPRESSION: Cholelithiasis with no obvious evidence of acute cholecystitis Laboratory Results WBC 9.80 10^3/uL (3.29-11.43) 03/29/24 15:02 RBC 5.28 10^6/uL (3.85-5.65) 03/29/24 15:02 Hgb 15.50 g/dL (11.27-16.99) 03/29/24 15:02 Hct 45.9 % (37-53) 03/29/24 15:02 MCV 86.9 fl (82-101) 03/29/24 15:02 MCH 29.4 pg (27-33) 03/29/24 15:02 MCHC 33.8 g/dL (30-55) 03/29/24 15:02 RDW 12.9 % (12.1-15.1) 03/29/24 15:02 Plt Count 224 10^3/cmm (157-399) 03/29/24 15:02 MPV 10.6 fL (7.4-10.4) H 03/29/24 15:02 Neut % (Auto) 66.2 % 03/29/24 15:02 Lymph % (Auto) 24.9 % 03/29/24 15:02 [place] % (Auto) 7.1 % 03/29/24 15:02 Eos % (Auto) 0.6 % 03/29/24 15:02 Baso % (Auto) 0.8 % 03/29/24 15:02 Neut # (Auto) 6.48 10^3/uL (1.8-7.7) 03/29/24 15:02 Lymph # (Auto) 2.4 10^3/uL (0.8-4.8) 03/29/24 15:02 [place] # (Auto) 0.7 10^3/uL (0.2-0.9) 03/29/24 15:02 Eos # (Auto) 0.1 10^3/uL (0.0-0.8) 03/29/24 15:02 Baso # (Auto) 0.1 10^3/uL (0.0-0.1) 03/29/24 15:02 Nucleated RBC % (auto) 0 % 03/29/24 15:02 Nucleated RBCs # 0.0 /100WBC 03/29/24 15:02 Sodium 140 mmol/L (136-145) 03/29/24 15:02 Potassium 4.2 mmol/L (3.5-5.1) 03/29/24 15:02 Chloride 101 mmol/L (98-107) 03/29/24 15:02 Carbon Dioxide 24 mmol/L (22-29) 03/29/24 15:02 Anion Gap 19.2 (5-19) H 03/29/24 15:02 BUN 8 mg/dL (6-20) 03/29/24 15:02 Creatinine 0.8 mg/dL (0.7-1.2) 03/29/24 15:02 GFR Calculation 116.0 mL/min (90-130) 03/29/24 15:02 Glucose 98 mg/dL (65-115) 03/29/24 15:02 Calculated Osmolality 288 mOsm/kg (285-295) 03/29/24 15:02 Calcium 9.4 mg/dL (8.5-10.5) 03/29/24 15:02 Total Bilirubin 0.9 mg/dL (0.15-1.2) 03/29/24 15:02 AST 17 U/L (0-40) 03/29/24 15:02 ALT 41 U/L (0-41) 03/29/24 15:02 Alkaline Phosphatase 151 U/L (40-130) H 03/29/24 15:02 Total Protein 8.3 g/dL (6.6-8.7) 03/29/24 15:02 Albumin 4.4 g/dL (3.5-5.2) 03/29/24 15:02 Globulin 3.9 g/dL (1.3-4.6) 03/29/24 15:02 Lipase 19 U/L (13-60) 03/29/24 15:02 Urine Color Dark yellow (Yellow) A 03/29/24 15:55 Urine Appearance Clear (CLEAR) 03/29/24 15:55 Urine pH 7 (5-7) 03/29/24 15:55 Ur Specific [place] 1.010 (1.005-1.030) 03/29/24 15:55 Urine Protein Trace (Negative) 03/29/24 15:55 Urine Glucose (UA) Norm (Normal) 03/29/24 15:55 Urine Ketones 1+ (Negative) H 03/29/24 15:55 Urine Blood Neg (Negative) 03/29/24 15:55 Urine Nitrate Negative (Negative) 03/29/24 15:55 Urine Bilirubin Neg (Negative) 03/29/24 15:55 Urine Urobilinogen 4 mg/dL (Negative) H 03/29/24 15:55 Ur Leukocyte Esterase Negative (Negative) 03/29/24 15:55 Urine RBC Rare /hpf (0-2) 03/29/24 15:55 Urine WBC 0-4 /hpf (0-5) H 03/29/24 15:55 Ur Squamous Epith Cells 0-4 /hpf (0-5) H 03/29/24 15:55 Amorphous Sediment Not Reportable 03/29/24 15:55 Urine Bacteria Trace /hpf (NONE) 03/29/24 15:55 Urine Mucus 1+ /hpf 03/29/24 15:55 All radiology interpretation(s) finalized by discharge Discharge Plan Discharge Patient Disposition: Home Clinical Impression: Abdominal pain, Cholelithiasis Condition: Stable Prescriptions: New hydrocodone-acetaminophen 5-325 mg tablet 1 tab PO Q6H PRN (Reason: pain) Qty: 14 0RF ondansetron 4 mg tablet,disintegrating 4 mg PO Q6H PRN (Reason: nausea and vomiting) Qty: 14 0RF No Action citalopram [Celexa] 10 mg tablet 10 mg PO DAILY Qty: 30 2RF hydrocodone-acetaminophen 5-325 mg tablet 1 tab PO Q8H PRN (Reason: Renal colic) 2 Days Qty: 5 0RF Discharge Orders: Discharge ED (Routine); Ordered 03/29/24 Ordered By: Dileep Hicks Referrals: Bart Chapman DO [Physician] - 1-3 days Discharge Diet: Advance as tolerated Discharge Activity: Resume usual activity Patient Instructions: Biliary Colic (ED), Gallstones (ED), Abdominal Pain (ED), Opioid Safety Coding Level of Care Code ED Assayer Helper for Gwendolyn Llanos
[2024-03-29] MEDS: morphine 4 mg/mL SDV 1 mL IVP (16:11)
[2024-03-29] MEDS: ondansetron 2 mg/ML SDV 2 mL 4 MG IVP (16:11)
[2024-03-29 16:23] LABS: Urine Color Dark Yellow (Yellow)
[2024-03-29 16:24] LABS: Add Urine Microscopic? YES; Bilirubin Urine Neg (Negative); Blood Urine Neg (Negative); Glucose Urine UA Norm (Normal); Ketones Urine 1+ (Negative); Leukocyte Esterase Urine Negative (Negative); Nitrate Urine Negative (Negative); Protein Urine Trace (Negative); Urine Appearance Clear (CLEAR); Urobilinogen Urine 4 mg/dL (Negative); pH Urine 7 (5-7)
[2024-03-29 16:29] LABS: Add Urine Culture? No; Bacteria Urine TRACE /hpf; Mucus Urine 1+ /hpf; RBC Urine RARE /hpf (0-2); Squamous Epithelial Cell Urine 0-4 /hpf (0-5); WBC Urine 0-4 /hpf (0-5)
[2024-03-29 17:00] VITALS: BP 148/110; RESP 16; O2SAT 97
[2024-03-29 17:20] VITALS: BP 159/99; PULSE 77; RESP 16; O2SAT 97
[2024-03-29 18:01] VITALS: BP 151/98; PULSE 71; RESP 16; TEMP 37.1; O2SAT 98
--- NOTE | 2024-03-30 07:33 | DCPLANNER ---
message sent to gen surg for er f/u
[2024-03-30 16:15] LABS: Chlamydia Trachomatis RNA TMA NOT DETECTED (NOT DETECTED); Neisseria Gonorrhoeae RNA, TMA NOT DETECTED (NOT DETECTED); Trichomonas Vaginalis RNA NOT DETECTED (NOT DETECTED)
[2024-03-31 15:40] LABS: Chlamydia Trachomatis RNA TMA NOT DETECTED (NOT DETECTED); Neisseria Gonorrhoeae RNA, TMA NOT DETECTED (NOT DETECTED)
== END 2024-03-29 17:45 | disposition home or self-care (01) ==
PROVIDERS: Nurse Practitioner Family; Emergency Provider Emergency Medicine
DX: K80.20 Calculus of gallbladder without cholecystitis without obstruction (principal); F17.290 Nicotine dependence, other tobacco product, uncomplicated
CPT/HCPCS: 36415; 76705; 80053; 81001; 83690; 85025; 87491; 87591; 96374; 96375; 99285; J2270; J2405